=== PATIENT | male | born 2005 | race Two or more races ===

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

== ENCOUNTER 2023-10-05 15:03 | Emergency (ER) | payer OTHER ==
[2023-10-05 15:15] VITALS: BP 97/63; PULSE 60; RESP 18; TEMP 98; BMI 27.8
[2023-10-05] MEDS ORDERED: IBUPROFEN 600 MG TABLET (FP) PO ONE (15:35)
[2023-10-05] MEDS: IBUPROFEN 600 MG TABLET (FP) PO ONE (15:37)
== END 2023-10-05 16:39 | disposition home or self-care (01) ==
LOC: JER 15:03 → JERFT 15:03
DX: S90.122A Contusion of left lesser toe(s) without damage to nail, initial encounter (principal); W22.8XXA Striking against or struck by other objects, initial encounter
CPT/HCPCS: 73630-TC-LT; 99283-25